=== PATIENT | male | born 1970 | race Two or more races ===

== ENCOUNTER → 2023-11-26 10:04 | Outpatient (REF) | payer OTHER, SELFPAY ==
[2023-11-26 10:48] LABS: ALT (SGPT) 30 U/L (0-50); AST (SGOT) 27 U/L (17-59); Albumin 4.4 g/dl (3.5-5.0); Alkaline Phosphatase 77 U/L (38-126); Blood Urea Nitrogen 10 mg/dl (9-20); Calcium 9.7 mg/dl (8.4-10.2); Carbon Dioxide 28 mmol/L (22-30); Chloride 100 mmol/L (98-107); Glucose 223 mg/dl (70-99); Potassium 4.8 mmol/L (3.5-5.1); Sodium 135 mmol/L (135-145); Total Bilirubin 0.7 mg/dl (0.2-1.3); Total Protein 7.2 g/dl (6.3-8.2); eGFR > 60.00
== END ==
LOC: CLINIC 10:04
PROVIDERS: ATTENDING PHYSICIAN Nurse Practitioner Acute Care
DX: E11.9 Type 2 diabetes mellitus without complications (principal)
CPT/HCPCS: 36415; 80053; 83036

== ENCOUNTER → 2024-02-22 07:16 | Outpatient (REF) | payer OTHER, SELFPAY ==
[2024-02-22 08:53] LABS: ALT (SGPT) 26 U/L (0-50); AST (SGOT) 27 U/L (17-59); Albumin 4.2 g/dl (3.5-5.0); Alkaline Phosphatase 70 U/L (38-126); Blood Urea Nitrogen 11 mg/dl (9-20); Calcium 9.5 mg/dl (8.4-10.2); Carbon Dioxide 25 mmol/L (22-30); Chloride 102 mmol/L (98-107); Glucose 184 mg/dl (70-99); Potassium 4.8 mmol/L (3.5-5.1); Sodium 136 mmol/L (135-145); Total Bilirubin 0.5 mg/dl (0.2-1.3); Total Protein 7.1 g/dl (6.3-8.2); eGFR > 60.00
[2024-02-22 09:04] LABS: Microalbumin, Random Urine 2.9 mg/dl (0.6-1.7)
[2024-02-22 09:21] LABS: PSA, Total - Screen 0.81 ng/ml (0.0-4.0)
[2024-02-22 09:50] LABS: Glycohemoglobin (HgbA1c) 10.2 % (4.0-5.6)
== END ==
LOC: CLINIC 07:16
PROVIDERS: ATTENDING PHYSICIAN Family Medicine
DX: Z12.5 Encounter for screening for malignant neoplasm of prostate (principal); E11.65 Type 2 diabetes mellitus with hyperglycemia
CPT/HCPCS: 80053; 82043; 83036; G0103

== ENCOUNTER → 2024-06-09 08:48 | Outpatient (REF) | payer OTHER, SELFPAY ==
[2024-06-09 11:01] LABS: ALT (SGPT) 30 U/L (0-50); AST (SGOT) 32 U/L (17-59); Albumin 4.5 g/dl (3.5-5.0); Alkaline Phosphatase 77 U/L (38-126); Blood Urea Nitrogen 10 mg/dl (9-20); Carbon Dioxide 29 mmol/L (22-30); Chloride 100 mmol/L (98-107); Glucose 169 mg/dl (70-99); HDL Cholesterol 62 mg/dl; LDL Cholesterol, Calculated 127 mg/dl; Potassium 4.9 mmol/L (3.5-5.1); Sodium 139 mmol/L (135-145); Total Bilirubin 0.9 mg/dl (0.2-1.3); Total Cholesterol 210 mg/dl (50-199); Total Protein 7.1 g/dl (6.3-8.2); Triglyceride 109 mg/dl (10-149); Very Low Density Lipoprotein 21 mg/dl (0-30); eGFR > 60.00
[2024-06-09 11:26] LABS: Urine Protein 8 mg/dl (0-12)
[2024-06-09 11:55] LABS: 24 Hour Urine Total Volume 2600 ml
[2024-06-10 12:09] LABS: Islet Cell Antibody, IgG <1:4 (<1:4)
[2024-06-10 14:12] LABS: Insulin, Random 5 uIU/mL
== END ==
LOC: CLINIC 08:48
PROVIDERS: ATTENDING PHYSICIAN Family Medicine
DX: E11.65 Type 2 diabetes mellitus with hyperglycemia (principal)
CPT/HCPCS: 36415; 80053; 80061; 81050; 83036; 83525; 84156; 86341